=== PATIENT | male | born 1965 | race Caucasian/White ===

== ENCOUNTER 2025-08-29 09:50 | Emergency (ER) | payer OTHER, SELFPAY ==
--- NOTE | ~2025-08-29 | XR_ITS ---
EXAMINATION: XR chest 2V, 08/29/2025 10:20 CDT HISTORY: cough,SOB, HX NODULES COMPARISON: No comparisons available. Technique: 2 views obtained. Findings: The lungs are clear, no effusion. No pneumothorax. Heart is normal size. Mediastinal and hilar contours are within normal limits. Bony thorax no acute abnormality. Impression: No acute cardiopulmonary abnormality. Reviewed, dictated and finalized at location P. Impression: No acute cardiopulmonary abnormality.
[2025-08-29 09:56] VITALS: BP 99/64; PULSE 115; RESP 20; TEMP 37.2; O2SAT 99
--- NOTE | 2025-08-29 10:12 | ED.URI ---
HPI - URI/Sore Throat General Chief Complaint: Upper Respiratory Infection Stated Complaint: upper respiratory Time Seen by Provider: 08/29/25 10:00 Source: patient Mode of arrival: ambulatory Limitations: no limitations History of Present Illness HPI Narrative: Eric is a 60-year-old male patient presenting to the clinic today with complaints of cough, shortness of breath, and feeling run down. He is a current smoker-1 pack per day for over 40 years. States he is coughing up some brown phlegm. Feels as though he can not get a breath in. History of bronchitis in the past. Thinks he may have asthma as well. Has been using his inhaler more than prescribed. 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 Denies any fevers, chills, or body aches. No recent weight loss. States that this illness is running through the home. Related Data Home Medications ?Medication ?Instructions ?Recorded ?Confirmed ?Last Taken ?Type albuterol sulfate 90 mcg/actuation inhalation 08/29/25 Unknown History aerosol inhaler lisinopril 10 mg tablet mg 08/29/25 Unknown History Allergies Allergy/AdvReac Type Severity Reaction Status Date / Time No Known Allergies Allergy Verified 08/29/25 10:08 Review of Systems Review of Systems: Pertinent positives per HPI. Patient denies any fever, chills, rash, headache, visual changes, dizziness, chest pain, palpitations, nausea, vomiting, diarrhea, constipation, abdominal pain, or any urinary issues. PMFSH Comments At the time of my signature, I reviewed and agree with the nursing past medical, surgical, social, and family history. There is no relevant family history pertinent to the patient complaint. Exam Narrative: General: Well-developed, well nourished, in no apparent distress Head: Normocephalic, atraumatic Eyes: Pupils equally round and reactive to light bilaterally, EOM intact, sclera and conjunctive clear, no discharge, lids normal Ears: TMs intact and clear, ear canals clear, no drainage, grossly hearing normal. Nose: Nares patent, clear nasal discharge, no inflammation, no sinus tenderness. Mouth: Oral pharynx mildly red without lesions or masses, good dentition, MMM. Neck: Supple, trachea midline, no enlargement of anterior or posterior cervical nodes, no thyroid masses or goiter palpable. Cardio: Regular rate and rhythm, s1 and s2 normal, no murmur appreciated. Resp: Lung sounds diminished in the bases, no rhonchi, rales, wheezing or rubs Course Course Emergency Course: Portions of this record may have been created with voice recognition software. Level of Care: Express Care Visit Vital Signs Vital signs: Vital Signs Temperature 37.2 C 08/29/25 09:56 Pulse Rate 115 H 08/29/25 09:56 Respiratory Rate 20 08/29/25 09:56 Blood Pressure 99/64 L 08/29/25 09:56 Pulse Oximetry 99 08/29/25 09:56 Oxygen Delivery Room Air 08/29/25 09:56 Temperature 37.2 C 08/29/25 09:56 Pulse Rate 115 H 08/29/25 09:56 Respiratory Rate 20 08/29/25 09:56 Blood Pressure 99/64 L 08/29/25 09:56 Pulse Oximetry 99 08/29/25 09:56 Oxygen Delivery Room Air 08/29/25 09:56 Vital signs reviewed MDM - URI/Sore Throat MDM Narrative Medical decision making narrative: At the time of visit patient is resting comfortably on the exam table. Patient appears to be nontoxic. Complaints of cough, shortness of breath, and feeling run down. He is a current smoker-1 pack per day for over 40 years. States he is coughing up some brown phlegm. Feels as though he can not get a breath in. History of bronchitis in the past. Thinks he may have asthma as well. Has been using his inhaler more than prescribed. 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 Denies any fevers, chills, or body aches. No recent weight loss. States that this illness is running through the home. On exam patient has bilateral TMs intact and clear, clear nasal drainage, no anterior turbinate inflammation, oral pharynx mildly red with postnasal drip, lung sounds diminished in the bases otherwise clear, heart rates increased but regular rate rhythm, oxygenation is 99% on room air patient is able to speak in full sentences. Chest x-ray was ordered. Diagnostics: Chest x-ray was performed and was negative for any acute cardiopulmonary process. Plan: I suspect patient has bronchitis-likely COPD exacerbation. Prescription for azithromycin, prednisone, and air supra inhaler was sent to the pharmacy. Work note was given. Supportive measures were discussed with the patient and they voiced understanding discharge instructions and agrees to treatment plan. Return precautions reviewed Differential Diagnosis Differential diagnosis: Likely upper respiratory infection, otitis media, sinusitis, viral infection, bronchitis, influenza, pharyngitis and other (COVID) Imaging Data Radiologist's impression: ITS Impressions Chest X-Ray 08/29/25 10:29 Impression: No acute cardiopulmonary abnormality. Discharge Plan Discharge Clinical Impression: Bronchitis Patient Disposition: Home Condition: Stable Instructions: Antibiotic Form, Acute Bronchitis (ED) Additional Instructions: COVID and influenza testing was negative in the clinic today. Chest x-rays negative for any acute cardiopulmonary process. Take prescription medications only as prescribed-airsuppra inhaler, prednisone, and azithromycin Increase fluids and stay well hydrated May take Tylenol or motrin as directed on bottle for pain/fever May use Flonase 1 spray in each nare daily May take OTC antihistamines such as Zyrtec or Claritin daily as directed on bottle May apply Vicks vapor rub to chest to open sinuses Sinus rinses for congestion Cepacol spray, cough drops, throat lozenges, warm tea with honey/lemon, gargle salt water to soothe throat BRAT diet for diarrhea Clear liquids x 24 hours then advance as tolerated for nausea/vomiting Go to the ED if you develop a worsening in your condition- high fever not controlled by Tylenol or Motrin, dehydration, weakness, lethargy, shortness of breath, or chest pain. Follow up with your PCP in 3-5 days if symptoms persist. Patient Language: Wallisian Prescriptions: New Airsupra 90-80 mcg/actuation HFA aerosol inhaler 2 inh inhalation .every 4-6 hours PRN (Reason: shortness of breath) 30 Days Qty: 10.7 0RF Rx Instructions: may repeat up to 6 doses per day (12 inhalations) prednisone 20 mg tablet 40 mg PO DAILY 5 Days Qty: 10 0RF azithromycin 250 mg tablet See Rx Instructions .ROUTE .COMPLEX Qty: 6 0RF Rx Instructions: For 250 mg dose pack: take 500 mg today (day 1), then 250 mg for 4 days (days 2-5) No Action lisinopril 10 mg tablet albuterol sulfate 90 mcg/actuation HFA aerosol inhaler INHALATION Follow-up/Referrals: Devan,Seng Escalera MD [Primary Care Provider, Unknown] Stand Alone Forms: Work/School Release IP Time of Disposition: 10:40 Quality NIHSS Nursing Documentation ED NIHSS nursing documentation: reviewed/agree
[2025-08-29 10:26] LABS: EDCOVIDSCREEN Negative (Negative); EDINFLUASCREEN Negative (Negative); EDINFLUBSCREEN Negative (Negative)
--- OUTSIDE RECORDS SUMMARY | 2025-08-29 11:24 | XMS_ITS | Encounter Summary ---
Author Organization [facility] Address [address] [place] [address] Phone Care Team Providers Care Investor Name Role Phone Seng Hartman MD Primary Care Provider [phone] Little Martinez APRN, [facility] Unavailable + [phone] Reason for Visit * Reason Comments Medication Refill Encounter Details Date Type Department Care Team (Late st Contact Info) Description 03/03/2024 Refill [facility] - Internal Medicine - [place] [address] [place] [address] Seng Hartman MD [address] [place] [address] Medication Refill Social History Tobacco Use Types Packs/Day Years Used Date Smoking Tobacco: Every Day Cigarettes Passive Smoke Exposure: Current Smokeless Tobacco: Former Alcohol Use Standard Drinks/Week Comments Yes 56 (1 standard drink = 0.6 oz pure alcohol) 8 daily; dropped down to 6 daily [facility] Utilities Answer Date Recorded In the past 12 months has [employer], [employer] oil, or water [employer] threatened to shut off services in your home? No 03/06/2024 Social Connection and Isolation Panel Answer Date Recorded In a typical week, how many times do you talk on the phone with family, friends, or neighbors? More than three times a week 03/06/2024 How often do you get togethe r with friends or relatives? More than three times a week 03/06/2024 How often do you attend chur ch or shinto services? Never 03/06/2024 Do you belong to any clubs o r organizations such as jain groups, unions, fraternal or athletic groups, or school groups? No 03/06/2024 How often do you attend meet ings of the clubs or organizations you belong to? Never 03/06/2024 Are you , , di vorced, , never , or living with a partner? Never 03/06/2024 AUDIT-C Answer Date Recorded Q1: How often do you have a drink containing alcohol? 4 or more times a week 03/06/2024 Q2: How many drinks containi ng alcohol do you have on a typical day when you are drinking? 5 or 6 Q3: How often do you have si x or more drinks on one occasion? Daily or almost daily 03/06/2024 Overall Financial Resource Strain (CARDIA) Answe r Date Recorded How hard is it for you to pa y for the very basics like food, housing, medical care, and heating? Not hard at all 03/06/2024 PHQ-2 Answer Date Recorded Total Score - Questions 1-9 0 02/07 [facility] - Occupational Stress Questionnaire Answer Date Recorded Do you feel stress - tense, restless, nervous, or anxious, or unable to sleep at night because your mind is troubled all the time - these days? Not at all 03/06/2024 Exercise Vital Sign Answer Date Recorde d On average, how many days pe r week do you engage in moderate to strenuous exercise (like a brisk walk)? 0 days 03/06/2024 On average, how many minutes do you engage in exercise at this level? 0 min 03/06/2024 Hunger Vital Sign Answer Date Recorded Within the past 12 months, y ou worried that your food would run out before you got the money to buy more. Never true 03/06/20 24 Within the past 12 months, t he food you bought just didn't last and you didn't have money to get more. Never true 03/06/2024 PRAPARE - Transportation Answer Date Re corded In the past 12 months, has l ack of transportation kept you from medical appointments or from getting medications? No 02/07 In the past 12 months, has l ack of transportation kept you from meetings, work, or from getting things needed for daily living? No 03/06/2024 Housing Stability Vital Sign Answer Blair e Recorded In the last 12 months, was t here a time when you were not able to pay the mortgage or rent on time? No 03/06/2024 In the last 12 months, how many places have you lived? 1 03/06/2024 In the last 12 months, was t here a time when you did not have a steady place to sleep or slept in a nursing home (including now)? No 03/06/2024 Education Answer Date Recorded What is the highest level of school you have completed or the highest degree you have received? 12th grade 03/01/2023 Sexually Active Control Partners Comments Yes Sex and Gender Information Value Date Recorded Sex Assigned at Not on file Legal Sex Male 8:26 PM CDT Gender Identity Not on file Sexual Orientation Not on file documented as of this encounter Functional Status * AUDIT-C Score Answer Date of Assessment Author 10 03/06/2024 10:33 AM Katina Solorzano CMA * Question Answer Date of Assessment Author Q1: How often do you have a drink containing alcohol? 4 or more times a week 03/06/2024 10:33 AM Katina Solorzano CMA Q2: How many drinks containing alcohol do you have on a typical day when you are drinking? 5 or 6 03/06/2024 10:33 AM Katina Solorzano CMA Q3: How often do you have six or more drinks on one occasion? Daily or almost daily 03/06/2024 10:33 AM Katina Solorzano CMA * Question Answer Date of Assessment Author Little interest or pleasure in doing things Not at all 03/06/2024 10:32 AM Kaitlyn Solorzano CMA Feeling down, depressed, or hopeless Not at all 03/06/2024 10:32 AM Katina Solorzano CMA * Over the past 2 weeks, how often have you been bothered by any of the following problems? Question Answer Date of Assessment Author Patient Health Questionnaire -2 Score 0 03/06/2024 10:32 AM Katina Solorzano CMA documented as of this encounter Miscellaneous Notes * Telephone Encounter - Sona Raman RN - 03/03/2024 8:55 AM CDT Medication(s) refilled and signed per [facility] Chronic Medication Refill Standing Order for Pediatricand Adult Patients. Requested Prescriptions Pending Prescriptions Disp Refills albuterol 108 (90 Base) MCG/ACT Aerosol Solution [Pharmacy Med Name: ALBUTEROL HFA INH (200 PUFFS) 6.7GM] 6.7 g 0 Sig: INHALE 1 TO 2 PUFFS BY MOUTH EVERY 4 HOURS NEEDED FOR WHEEZING Short Acting Inhaled Beta-Agonists Protocol Passed - 03/03/2024 5:30 AM Passed - Visit with relevant provider in past 12 months or upcoming 90 days Recent Visits Date Type Provider Dept 08/30/23 Office Visit Seng Hartman MD [facility] [place] Showing recent visits within past 365 days and meeting all other requirements Future Appointments Date Type Provider Dept 03/06/24 Appointment Seng Hartman MD [facility] Showing future appointments within next 90 days and meeting all other requirements documented in this encounter Plan of Treatment Upcoming Encounters Date Type Department Care Team (Late st Contact Info) Description 09/10/2025 10:40 AM 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 Office Visit [facility] - Primary Care - [place] [address] [place] [id number] Seng Hartman MD [address] [place] [address] 10/29/2025 9:30 AM 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 Office Visit [facility] - Neurology - [place] [address] [place] [address] Little Martinez APRN, [employer] PROJECT MANAGER [address] [place] [address] documented as of this encounter Visit Diagnoses Not on filedocumented in this encounter Additional Health Concerns Assessment Noted Time PHQ-9 Depression Total Score: 0 11/25/19 21 9:00 AM 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 documented as of this encounter Care Teams Investor Relationship Specialty Start Date End Date Seng Hartman MD PCP - General Internal Medicine 02/22/16 Little Martinez, INSTRUMENT SHOP SUPERVISOR, [employer] PROJECT MANAGER [address] [place] [id number] Nurse Practitioner Advanced Practice Nurse 07/30/25 documented as of this encounter
--- OUTSIDE RECORDS SUMMARY | 2025-08-29 11:24 | XMS_ITS | Clinical Summary ---
Author Organization [facility] Address [address] [place] [address] Phone Care Team Providers Care Concrete Form Setter And Finisher Name Role Phone Seng Hartman MD Primary Care Provider [phone] Little Martinez APRN, INTEGRATED LOGISTICS OPERATIONS MANAGER Unavailable +1- [phone] Allergies No known active allergies Medications Multiple Vitamin (MULTIVITAMIN PO) Take by mouth. Contains calcium, magnesium, and zinc Active aspirin 81 MG Chewable TabletIndicati ons:Ischemic Stroke Take 1 Tablet by mouth daily. Indications: Stroke Due To Limited Blood Flow 5 Active lisinopril (PRINIVIL, ZESTRIL) 10 MG TabletIndicati ons:Essential hypertension, benign Take 1 Tablet by mouth daily. 90 Tablet 1 5 Active albuterol 108 (90 Base) MCG/ACT Aerosol Solution INHALE 1 TO 2 PUFFS BY MOUTH EVERY 4 HOURS NEEDED FOR WHEEZING 6.7 g 3 5 Active albuterol 108 (90 Base) MCG/ACT Aerosol Solution INHALE 1 TO 2 PUFFS BY MOUTH EVERY 4 HOURS NEEDED FOR WHEEZING 6.7 g 3 5 025 Discontinued Active Problems Problem Noted Date Diagnosed Date Acute ischemic stroke 04/06/2025 Centrilobular emphysema 08/31/2022 Smoking greater than 20 pack years 08/31/2022 Essential hypertension, benign 08/26/2020 Alcohol abuse 02/11/2018 Marijuana abuse Epilepsy Resting tremor Resolved Problems Problem Noted Date Diagnosed Date Resolved Date Hypertension 04/07/2025 Asthma 04/07/2025 ETOH abuse 04/07/2025 Tobacco abuse 04/07/2025 Encounters Date Type Department Care Team Description 08/24/2025 [facility]ill [facility] [address] [address] Seng Hartman MD Medication Refill 07/30/2025 9:30 AM CDT [facility] [address] [place] [phone] Little Martinez, FLATWORK PRESSER, INTEGRATED LOGISTICS OPERATIONS MANAGER History of stroke (Primary Dx); Essential hypertension, benign; Uncomplicated alcohol dependence (HCC); Tobacco dependence syndrome Discharge Disposition: Discharged to home or Selfcare 07/30/2025 Travel 07/10/2025 Telephone [facility] [address] [place] [address] Little Martinez FLATWORK PRESSER, INTEGRATED LOGISTICS OPERATIONS MANAGER 06/22/2025 [facility] [address] [place] [address] Abi Rausch, [facility] Medication Refill from Last 3 Months Immunizations Immunization Administration Dates Next Due Covid-19, Mrna, Lnp-s, Pf, 3 0 Mcg/0.3 Ml Dose ([employer]) 07/12/2021,06/21/2021 07/12/2021 DTAP VACCINE 02/28/2007 Influenza Vaccine 08/30/2018 Influenza Vaccine, Quadrivalent, PF 08/09,08/31/2022,08/25/2021,08/26 Influenza,Split Virus,Trivalent,Injectable,PF 09/04/2024 Pneumococcal Vaccine Adult - 23 Valent 02/23/2022 TDAP Vaccine 03/05/2025 Family History Medical History Relation Name Comments No Known Problems Mother Relation Name Status Comments Father Half-Brother Alive Half-Sister 1 Alive Half-Sister 2 Alive Half-Sister 3 Alive Half-Sister 4 Alive Mother Alive Social History Tobacco Use Types Packs/Day Years Used Date Smoking Tobacco: Every Day Cigarettes Passive Smoke Exposure: Current Smokeless Tobacco: Former Tobacco Cessation:Ready to Q uit: No; Counseling Given: Yes Alcohol Use Standard Drinks/Week Comments Yes 56 (1 standard drink = 0.6 oz pure alcohol) 8 daily; dropped down to 6 daily [facility] Utilities Answer Date Recorded In the past 12 months has e electric, gas, oil, or water company threatened to shut off services in your home? Patient declined 04/06/2025 Social Connection and Isolation Panel Answer Date Recorded In a typical week, how many times do you talk on the phone with family, friends, or neighbors? Patient declined 04/06/2025 How often do you get togethe r with friends or relatives? Patient declined 04/06/2025 How often do you attend anabaptist or hinduism serv ices? Patient declined 04/06/2025 Do you belong to any clubs o r organizations such as anabaptist groups, unions, fraternal or athletic groups, or school groups? Patient declined 04/06/2025 How often do you attend meet ings of the clubs or organizations you belong to? Patient declined 04/06/2025 Are you , , di vorced, , never , or living with a partner? Patient declined 04/06/2025 AUDIT-C Answer Date Recorded Q1: How often do you have a drink containing alc ohol? Patient declined 04/06/2025 Q2: How many drinks containi ng alcohol do you have on a typical day when you are drinking? Patient declined 04/06/2025 Q3: How often do you have si x or more drinks on one occasion? Patient declined 04/06/2025 Overall Financial Resource Strain (CARDIA) Answe r Date Recorded How hard is it for you to pa y for the very basics like food, housing, medical care, and heating? Patient declined 04/06/2025 PHQ-2 Answer Date Recorded Total Score - Questions 1-9 0 02/07 [employer] - Occupational Stress Questionnaire Answer Date Recorded Do you feel stress - tense, restless, nervous, or anxious, or unable to sleep at night because your mind is troubled all the time - these days? Patient declined 04/06/2025 Exercise Vital Sign Answer Date Recorde d On average, how many days pe r week do you engage in moderate to strenuous exercise (like a brisk walk)? Patient declined On average, how many minutes do you engage in exercise at this level? Patient declined 04/06/2025 Hunger Vital Sign Answer Date Recorded Within the past 12 months, y ou worried that your food would run out before you got the money to buy more. Patient declined Within the past 12 months, t he food you bought just didn't last and you didn't have money to get more. Patient declined PRAPARE - Transportation Answer Date Re corded In the past 12 months, has l ack of transportation kept you from medical appointments or from getting medications? Patient declined 04/06/2025 In the past 12 months, has l ack of transportation kept you from meetings, work, or from getting things needed for daily living? Patient declined 04/06/2025 Housing Stability Vital Sign Answer Blair e [...] place to sleep or slept in a custodial (including now)? No 03/06/2024 Housing Stability Vital Sign Answer Blair e Recorded In the last 12 months, was t here a time when you were not able to pay the mortgage or rent on time? Patient declined 04/06/20 25 In the past 12 months, how m any times have you moved where you were living? 1 04/06/2025 At any time in the [facility], were you homeless or living in a custodial (including now)? Patient declined 04/06/2025 Education Answer Date Recorded What is the highest level of school you have completed or the highest degree you have received? 12th grade 03/01/2023 Sexually Active Control Partners Comments Yes Sex and Gender Information Value Date Recorded Sex Assigned at Not on file Legal Sex Male 8:26 PM CDT Gender Identity Not on file Sexual Orientation Not on file Last Filed Vital Signs Vital Sign Reading Time Taken Comments Blood Pressure 102/70 07/30/2025 9:39 AM CDT Pulse 74 07/30/2025 9:39 AM CDT Temperature 36.8 C (98.3 F) 07/30/2025 9:39 AM CDT Respiratory Rate 16 07/30/2025 9:39 AM CDT Oxygen Saturation 99% 07/30/2025 9:39 AM CDT Inhaled Oxygen Concentration - - Weight 67.6 kg (149 lb) 07/30/2025 9:39 AM CDT Height 180.3 cm (5' 11) 07/30/2025 9:39 AM CDT Body Mass Index 20.78 07/30/2025 9:39 AM CDT Plan of Treatment Upcoming Encounters Date Type Department Care Team (Late st Contact Info) Description 09/10/2025 10:40 AM LUMBER TYING MACHINE OPERATOR Office Visit [facility] - Primary Care - [place] [address] [place] [address] Seng Hartman MD [address] [place] [address] 10/29/2025 9:30 AM LUMBER TYING MACHINE OPERATOR Office Visit [facility] - Neurology - [place] [address] [place] [address] Little Martinez, FLATWORK PRESSER, INTEGRATED LOGISTICS OPERATIONS MANAGER [address] [place] [address] Health Maintenance Due Date Last Done Comments Hepatitis C Virus (HCV) Screening 1967 Hepatitis B Immunization (1 of 3 - 19+ 3-dose series) 1986 Colonoscopy 2012 Immunochemical Fecal Occult Blood 2012 Zoster Immunization (1 of 2) 2017 Pneumococcal Immunization (50+ years) (2 of 2 - PCV) 02/23/2023 02/23/2022 Cologuard 03/09/2025 03/09/2022 Colorectal Cancer Screening 03/09/2025 Influenza Immunization (#1) 07/09/202508/09, 08/30/2023, 08/31/2022, Additional history exists SARS-COV-2 Immunization ( - season) 2025 07/12/2021, 06/21/2021 Respiratory Syncytial Virus (RSV) Immunization (Adult) (1 - 1-dose 75+ series) 2042 Pneumococcal Immunization Combined Discontinued 02/23/2022 DTaP/Tdap/Td Immunization Discontinued 03/05/2025, PSA Discussion Completed 03/10/2025, 08/09, 09/05/2022, Additional history exists Human Papillomavirus (HPV) Immunization Aged Out No longer eligible based on patient's age to complete this topic Meningococcal Immunization (ACWY) Aged Out No longer eligible based on patient's age to complete this topic Rotavirus Immunization Aged Out No lo nger eligible based on patient's age to complete this topic Procedures Procedure Name Priority Date/Time Associated Diagnosis Comments PSA SCREEN Routine 03/10/2025 7:39 AM CDT Screening for prostate cancer COLOGUARD Routine 03/09/2022 3:50 PM CDT Screening for colorectal cancer from Last 3 Months or Most Recently Relevant to Health Maintenance Results * PSA SCREEN (03/10/2025 7:39 AM CDT) PSA SCREEN, TOTAL 1.26 <4.00 ng/mL 03/10/2025 9:32 AM CDT [facility] Blood Venipuncture / Unknown 03/10/2025 7:39 AM CDT 03/10/2025 8:25 AM CDT Narrative [facility] - 03/10/2025 9:[address] AM [address]T [address] [employer] Total PSA assay is a Chemiluminescent Microparticle Immunoassay (CMIA) for the quantitative determination of total PSA (both free PSA and PSA complexed to [id number]) in human serum. Total PSA values obtained with different assay methods, including Galaviz PSA assays, cannot be used interchangeably. us Seng Hartman MD CHEMISTRY ORDERABLES Final Result [facility] [address] [place] [address] * COLOGUARD (03/09/2022 3:50 PM CDT) Cologuard Negative Negative [facility] Comment: NEGATIVE TEST RESULT. A negative Cologuard result indicates a low likelihood that a colorectal cancer (CRC) or advanced adenoma (adenomatous polyps with more advanced pre-malignant features) is present. The chance that a person with a negative Cologuard test has a colorectal cancer is less than 1 in 1500 (negative predictive value >99.9%) or has an advanced adenoma is less than 5.3% (negative predictive value 94.7%). These data are based on a prospective cross-sectional study of 10,000 individuals at average risk for colorectal cancer who were screened with both Cologuard and colonoscopy. (Mecca Hatfield et al, N Engl J Med 2014;370(14):3189-3755) The normal value (reference range) for this assay is negative. COLOGUARD RE-SCREENING RECOMMENDATION: Periodic colorectal cancer screening is an important part of preventive healthcare for asymptomatic individuals at average risk for colorectal cancer. Following a negative Cologuard result, the [place] Cancer Society and U.S. Multi-Society Task Force screening guidelines recommend a Cologuard re-screening interval of 3 years. References: [place] Cancer Society Guideline for Colorectal Cancer Screening: https://www.cancer.org/cancer/qmxqb-lxafmf-qmvjfq/wjpnaygip-xgkcndsdw-habgrjr/ acs-recommendations.html.; Stuart FREDERICK, Taylor RENO, Destiny LopezK, Colorectal Cancer Screening: Recommendations for Physicians and Patients from the U.S. Multi-Society Task Force on Colorectal Cancer Screening , Am J Gastroenterology 2017; 112:4190-0650. TEST DESCRIPTION: Composite algorithmic analysis of stool DNA-biomarkers with hemoglobin immunoassay. Quantitative values of individual biomarkers are not reportable and are not associated with individual biomarker result reference ranges. Cologuard is intended for colorectal cancer screening of adults of either sex, 45 years or older, who are at average-risk for colorectal cancer (CRC). Cologuard has been approved for use by the U.S. FDA. The performance of Cologuard was established in a cross sectional study of average-risk adults aged 50-84. Cologuard performance in patients ages 45 to 49 years was estimated by sub-group analysis of near-age groups. Colonoscopies performed for a positive result may find as the most clinically significant lesion: colorectal cancer [4.0%], advanced adenoma (including sessile serrated polyps greater than or equal to 1cm diameter) [20%] or non- advanced adenoma [31%]; or no colorectal neoplasia [45%]. These estimates are derived from a prospective cross-sectional screening study of 10,000 individuals at average risk for colorectal cancer who were screened with both Cologuard and colonoscopy. (Mecca Chin al, N Engl J Med 2014;370(14):7754-0387.) Cologuard may produce a false negative or false positive result (no colorectal cancer or precancerous polyp present at colonoscopy follow up). A negative Cologuard test result does not guarantee the absence of CRC or advanced adenoma (pre-cancer). The current Cologuard screening interval is every 3 years. ([place] Cancer Society and U.S. Multi-Society Task Force). Cologuard performance data in a 10,000 patient pivotal study using colonoscopy as the reference method can be accessed at the following location: www.evolso/results. Additional description of the Cologuard test process, warnings and precautions can be found at www.[employer]rd.com. Stool 03/09/2022 3:50 PM CDT 03/11/2022 12:48 PM CDT Seng Hartman MD BODY FLUIDS & STOOLS ORDERA BLES Final Result [employer] [address] [place] [address], [employer] [address] [place] [address] [place] [id number] from Last 3 Months or Most Recently Relevant to Health Maintenance Insurance [employer] Advance Directives * Full Code (Latest Code Status on File) Date Activated Date Inactivated Comments 04/06/2025 12:59 PM CPR-Full Shruthi tment: FULL ARREST: Attempt Resuscitation/CPR wit intubation and mechanical ventilation. PRE-ARREST: Use entire range of life support measures to stabilize the patient. Care Teams Concrete Form Setter And Finisher Relationship Specialty Start Date End Date Seng Hartman MD PCP - General Internal Medicine 02/22/16 Little Martinez, ERIC, INTEGRATED LOGISTICS OPERATIONS MANAGER [address] [place] [address] Nurse Practitioner Advanced Practice Nurse 07/30/25
--- OUTSIDE RECORDS SUMMARY | 2025-08-29 11:24 | XMS_ITS | Encounter Summary ---
Author Organization [facility] Address [address] [place] [address] Phone Care Team Providers Care Squeegee Finisher Name Role Phone Seng Hartman MD Primary Care Provider [phone] Little Martinez APRN, [facility] Unavailable + [phone] Reason for Visit * Reason Comments Medication Refill Encounter Details Date Type Department Care Team (Late st Contact Info) Description 02/16/2024 [facility]ill [facility] - [place] [address] [place] [address] Seng Hartman MD [address] [place] [address] Medication Refill Social History Tobacco Use Types Packs/Day Years Used Date Smoking Tobacco: Every Day Cigarettes Passive Smoke Exposure: Current Smokeless Tobacco: Former Alcohol Use Standard Drinks/Week Comments Yes 56 (1 standard drink = 0.6 oz pure alcohol) 8 daily; dropped down to 6 daily PHQ-2 Answer Date Recorded Total Score - Questions 1-9 0 02/06 Education Answer Date Recorded What is the [...] on file documented as of this encounter Miscellaneous Notes * Telephone Encounter - Sona Raman RN - 02/16/2024 8:22 AM CDT Medication(s) refilled and signed per [facility] Chronic Medication Refill Standing Order for Pediatricand Adult Patients. Requested Prescriptions Pending Prescriptions Disp Refills albuterol 108 (90 Base) MCG/ACT Aerosol Solution [Pharmacy Med Name: ALBUTEROL HFA INH (200 PUFFS) 6.7GM] 6.7 g 0 Sig: INHALE 1 TO 2 PUFFS BY MOUTH EVERY 4 HOURS NEEDED FOR WHEEZING Short Acting Inhaled Beta-Agonists Protocol Passed - 02/16/2024 5:34 AM Passed - Visit with relevant provider in past 12 months or upcoming 90 days Recent Visits Date Type Provider Dept 08/30/23 Office Visit Seng Hartman MD [facility] [place] 03/01/23 Office Visit Seng Hartman MD [facility] [place] Showing recent visits within past 365 days and meeting all other requirements Future Appointments Date Type Provider Dept 03/06/24 Appointment Seng Hartman MD [facility] [place] Showing future appointments within next 90 days and meeting all other requirements documented in this encounter Plan of Treatment Upcoming Encounters Date Type Department Care Team (Late st Contact Info) Description 09/10/2025 10:40 AM AUTOMATIC SERGING MACHINE OPERATOR Office Visit [facility] - Primary Care - [place] [address] [place] [address] Seng Hartman MD [address] [place] [address] 10/29/2025 9:30 AM AUTOMATIC SERGING MACHINE OPERATOR Office Visit [facility] - Neurology - [place] [address] [place] [address] Little Martinez APRN, FISH FLIPPER [address] [place] [address] documented as of this encounter Visit Diagnoses Not on filedocumented in this encounter Additional Health Concerns Assessment Noted Time PHQ-9 Depression Total Score: 0 11/25/19 21 9:00 AM AUTOMATIC SERGING MACHINE OPERATOR documented as of this encounter Care Teams Squeegee Finisher Relationship Specialty Start Date End Date Seng Hartman MD PCP - General Internal Medicine 02/22/16 Little Martinez APRN, FISH FLIPPER [address] [place] [address] Nurse Practitioner Advanced Practice Nurse 07/30/25 documented as of this encounter
--- OUTSIDE RECORDS SUMMARY | 2025-08-29 11:24 | XMS_ITS | Encounter Summary ---
Author Organization [facility] Address [address] [place] [address] Phone Care Team Providers Care Fur Blowing Machine Operator Name Role Phone Seng Hartman MD Primary Care Provider [phone] Little Martinez APRN, [facility] Unavailable + [phone] Reason for Visit * Reason Comments Medication Refill Encounter Details Date Type Department Care Team (Late st Contact Info) Description 01/12/2024 [facility]ill [facility] - [place] [address] [place] [address] Seng Hartman MD [address] [place] [address] Medication Refill Social History Tobacco [...] Telephone Encounter - Sona Raman RN - 01/12/2024 9:47 AM CST Medication(s) refilled and signed per [facility] Chronic Medication Refill Standing Order for Pediatricand Adult Patients. Requested Prescriptions Pending Prescriptions Disp Refills albuterol 108 (90 Base) MCG/ACT Aerosol Solution [Pharmacy Med Name: ALBUTEROL HFA INH (200 PUFFS) 6.7GM] 6.7 g 0 Sig: INHALE 1 TO 2 PUFFS BY MOUTH EVERY 4 HOURS NEEDED FOR WHEEZING Short Acting Inhaled Beta-Agonists Protocol Passed - 01/12/2024 5:40 AM Passed - Visit with relevant provider in past 12 months or upcoming 90 days Recent Visits Date Type Provider Dept 08/30/23 Office Visit Seng Hartman MD [facility] [place] 03/01/23 Office Visit Seng Hartman MD [facility] [place] Showing recent visits within past 365 days and meeting all other requirements Future Appointments Date Type Provider Dept 03/06/24 Appointment Seng Hartman MD [facility] [place] Showing future appointments within next 90 days and meeting all other requirements T DEMONSTRATOR documented in this encounter Plan of Treatment Upcoming Encounters Date Type Department Care Team (Late st Contact Info) Description 09/10/2025 10:40 AM CRAFT DEMONSTRATOR Office Visit [facility] - Primary Care - [place] [address] [place] [address] Seng Hartman MD [address] [place] [address] 10/29/2025 9:30 AM CRAFT DEMONSTRATOR Office Visit [facility] - Neurology - [place] [address] [place] [address] Little Martinez APRN, LABOR RELATIONS WORKER [address] [place] [address] documented as of this encounter Visit Diagnoses Not on filedocumented in this encounter Additional Health Concerns Assessment Noted Time PHQ-9 Depression Total Score: 0 11/25/19 21 9:00 AM CRAFT DEMONSTRATOR documented as of this encounter Care Teams Fur Blowing Machine Operator Relationship Specialty Start Date End Date eSng Hartman MD PCP - General Internal Medicine 02/22/16 Little Martinez APRN, LABOR RELATIONS WORKER [address] [place] [address] Nurse Practitioner Advanced Practice Nurse 07/30/25 documented as of this encounter
--- OUTSIDE RECORDS SUMMARY | 2025-08-29 11:24 | XMS_ITS | Encounter Summary ---
Author Organization [facility] Address [address] [place] [address] Phone Care Team Providers Care Aegis Operations Specialist Name Role Phone Seng Hartman MD Primary Care Provider [phone] Little Martinez APRN, [facility] Unavailable + [phone] Reason for Visit * Reason Comments Medication Refill Encounter Details Date Type Department Care Team (Late st Contact Info) Description 01/28/2024 [facility]ill [facility] Medicine - [place] [address] [place] [address] Seng Hartman MD [address] [place] [address] Medication Refill Social History Tobacco [...] Telephone Encounter - Sona Raman RN - 01/31/2024 10:14 AM CDT Medication(s) refilled and signed per [facility] Chronic Medication Refill Standing Order for Pediatricand Adult Patients. Requested Prescriptions Pending Prescriptions Disp Refills albuterol 108 (90 Base) MCG/ACT Aerosol Solution [Pharmacy Med Name: ALBUTEROL HFA INH (200 PUFFS) 6.7GM] 6.7 g 0 Sig: INHALE 1 TO 2 PUFFS BY MOUTH EVERY 4 HOURS NEEDED FOR WHEEZING Short Acting Inhaled Beta-Agonists Protocol Passed - 01/28/2024 5:46 AM Passed - Visit with relevant provider in past 12 months or upcoming 90 days Recent Visits Date Type Provider Dept 08/30/23 Office Visit Seng Hartman MD [facility] [place] 03/01/23 Office Visit Seng Hartman MD [facility] [place] Showing recent visits within past 365 days and meeting all other requirements Future Appointments Date Type Provider Dept 03/06/24 Appointment Seng Hartman MD [facility] [place] Showing future appointments within next 90 days and meeting all other requirements documented in this encounter Plan of Treatment Upcoming Encounters Date Type Department Care Team (Late st Contact Info) Description 09/10/2025 10:40 AM SUPERVISOR LAST MODEL DEPARTMENT Office Visit [facility] - Primary Care - [place] [address] [place] [address] Seng Hartman MD [address] [place] [address] 10/29/2025 9:30 AM SUPERVISOR LAST MODEL DEPARTMENT Office Visit [facility] - Neurology - [place] [address] [place] [address] Ltitle Martinez APRN, WEALTH MANAGEMENT ADVISOR [address] [place] [address] documented as of this encounter Visit Diagnoses Not on filedocumented in this encounter Additional Health Concerns Assessment Noted Time PHQ-9 Depression Total Score: 0 11/25/19 21 9:00 AM SUPERVISOR LAST MODEL DEPARTMENT documented as of this encounter Care Teams Aegis Operations Specialist Relationship Specialty Start Date End Date Seng Hartman MD PCP - General Internal Medicine 02/22/16 Little Martinez APRN, WEALTH MANAGEMENT ADVISOR [address] [place] [address] Nurse Practitioner Advanced Practice Nurse 07/30/25 documented as of this encounter
== END 2025-08-29 10:48 | disposition home or self-care (01) ==
PROVIDERS: Emergency Provider Nurse Practitioner Family; PCP Internal Medicine
DX: J40 Bronchitis, not specified as acute or chronic (principal); Z20.822 Contact with and (suspected) exposure to COVID-19; F17.200 Nicotine dependence, unspecified, uncomplicated
CPT/HCPCS: 71046; 87426; 87804; 99203; G0463